=== PATIENT | female | born 1990 | race Caucasian/White ===

== ENCOUNTER 2017-02-13 15:22 | Inpatient (IN) | payer BC ==
[2017-02-13] VITALS (9 sets, daily range): BP systolic 107–130; BP diastolic 55–74; PULSE 79–89; TEMP 98.4
[~2017-02-13] VITALS: Ht 165.1 cm; Wt 86.8 kg
[2017-02-13 19:52] LABS: BASO # 0.1 (0.0-0.2); BASO % 0.5 % (0.0-2.0); EOS # 0.2 (0.0-0.7); EOS % 1.7 % (0-4.0); GRAN # 9.4 (1.4-6.5); HEMOGLOBIN 12.1 g/dl (12.5-16.0); LYMPH # 1.5 (1.2-3.4); MEAN CELL VOLUME 84 fl (80.0-100.0); MEAN CORPUSCULAR HEMOGLOBIN 28 pg (27.0-31.0); MEAN CORPUSCULAR HGB CONC 33 g/dl (33.0-37.0); MEAN PLATELET VOLUME 10.1 fl (7.4-10.4); MONO # 1.3 (0.1-0.6); MONO % 10.4 % (1.7-9.3); PLATELET COUNT 251 K/mm3 (130-400); RED BLOOD COUNT 4.38 M/mm3 (4.10-5.30); REDCELL DISTRIBUTION WIDTH-CV 14.2 % (11.5-14.5); WHITE BLOOD COUNT 12.6 K/mm3 (4.8-10.8)
[2017-02-13 19:53] LABS: HEMATOCRIT 36.7 % (37.0-47.0)
[2017-02-13] MEDS ORDERED: PRENATAL (19:53)
[2017-02-13] MEDS ORDERED: ZANTAC 150MG T150 MG PO (19:54)
[2017-02-13] MEDS ORDERED: MILLIPRED DP5 MG PO (19:54)
[2017-02-14] VITALS (52 sets, daily range): BP systolic 99–128; BP diastolic 41–106; PULSE 68–123; TEMP 97.9–99.2
[2017-02-15 02:15] VITALS: BP 111/57; PULSE 73; TEMP 97.8
[2017-02-15 07:41] LABS: MEAN CELL VOLUME 86 fl (80.0-100.0); MEAN CORPUSCULAR HGB CONC 32 g/dl (33.0-37.0); MEAN PLATELET VOLUME 10.1 fl (7.4-10.4); PLATELET COUNT 187 K/mm3 (130-400); RED BLOOD COUNT 3.88 M/mm3 (4.10-5.30); REDCELL DISTRIBUTION WIDTH-CV 14.6 % (11.5-14.5); WHITE BLOOD COUNT 16.2 K/mm3 (4.8-10.8)
[2017-02-15 07:42] LABS: HEMATOCRIT 33.3 % (37.0-47.0); HEMOGLOBIN 10.8 g/dl (12.5-16.0); MEAN CORPUSCULAR HEMOGLOBIN 28 pg (27.0-31.0)
[2017-02-15 07:50] VITALS: BP 100/60; PULSE 80; TEMP 97.6
[2017-02-15 08:17] LABS: BAND 29 % (0-10); EOSINOPHIL 3 % (0-4); MYELOCYTE 3 % (0-0); NEUTROPHILS 51 % (42.0-75.2); TOTAL CELLS COUNTED 100
[2017-02-15 08:18] LABS: PLATELET ESTIMATE NORMAL (NORMAL); TOXIC GRANULATION PRESENT
[2017-02-15 08:19] LABS: ADD PATHOLOGY DIFF REVIEW YES
[2017-02-15] MEDS ORDERED: IBU600 MG PO (09:10)
[2017-02-15] MEDS ORDERED: PERCOCET 325 MG1 TA2 PO (09:10)
[2017-02-15 09:18] LABS: PATHOLOGY DIFF REVIEW OK
[2017-02-15 16:30] VITALS: BP 128/71; PULSE 85; TEMP 97.9
[2017-02-15 20:00] VITALS: BP 117/73; PULSE 79; TEMP 98
[2017-02-16 03:22] VITALS: BP 118/68; PULSE 72; TEMP 98.1
[2017-02-16 07:53] VITALS: BP 125/74; PULSE 91
[2017-02-16 12:47] VITALS: BP 123/66; PULSE 91
[2017-02-16 16:47] VITALS: BP 114/65; PULSE 85
== END 2017-02-16 20:45 | disposition home or self-care (01) | DRG 766 ==
LOC: LDR 15:22 → OB 19:15
PROVIDERS: Obstetrics & Gynecology
PROC: 10D00Z1 Extraction of Products of Conception, Low, Open Approach (ICD-10-PCS; principal; 2017-02-14)
DX: O48.0 Post-term pregnancy (principal); O76 Abnormality in fetal heart rate and rhythm complicating labor and delivery; O32.3XX0 Maternal care for face, brow and chin presentation, not applicable or unspecified; O26.86 Pruritic urticarial papules and plaques of pregnancy (PUPPP); O69.81X0 Labor and delivery complicated by cord around neck, without compression, not applicable or unspecified; O99.824 Streptococcus B carrier state complicating childbirth; Z3A.40 40 weeks gestation of pregnancy; Z37.0 Single live birth
CPT/HCPCS: J0690; J1885; J2175; J2270; J2370; J2405; J2540; J2590; J2795; J7120